=== PATIENT | male | born 2000 | race Two or more races ===

== ENCOUNTER 2023-12-02 13:02 | Emergency (ER) | payer BC, OTHER ==
[2023-12-02 13:26] VITALS: BP 163/102; PULSE 60; RESP 17; TEMP 97.7; BMI 25.8
== END 2023-12-02 14:05 | disposition home or self-care (01) ==
LOC: JERFT 13:02
DX: M25.512 Pain in left shoulder (principal)
CPT/HCPCS: 73030-TC-LT-FY; 99283-25

== ENCOUNTER 2024-08-11 00:45 | Emergency (ER) | payer BC, OTHER ==
[2024-08-11 01:11] VITALS: BP 135/62; PULSE 73; RESP 18; TEMP 99; BMI 24.3
== END 2024-08-11 02:54 | disposition home or self-care (01) ==
LOC: JER 00:45
DX: M25.511 Pain in right shoulder (principal); J02.9 Acute pharyngitis, unspecified; R05.9 Cough, unspecified; X50.1XXA Overexertion from prolonged static or awkward postures, initial encounter; Y93.75 Activity, martial arts
CPT/HCPCS: 0241U-QW; 71046-TC-FY; 73030-TC-RT-FY; 87070; 87205; 87651; 99284-25